=== PATIENT | male | born 1955 | race Two or more races ===

== ENCOUNTER 2017-01-27 10:10 | Emergency (ER) | payer MEDICAID ==
[~2017-01-27] VITALS: Ht 172.7 cm; Wt 81.6 kg
--- NOTE | 2017-01-27 10:10 | NUR ---
BIB FAMILY C/O R KNEE PAIN AND SWELLING X 6 DAYS, NO RECENT TRAUMA. NAD NOTED. PT AAO X4, VSS. RR EVEN AND UNLABORED. DR BRONSON AT BEDSIDE FOR EVAL.
[2017-01-27] MEDS ORDERED: ACET325T53 PO (10:21)
--- NOTE | 2017-01-27 10:46 | NUR ---
XRAY AT BEDSIDE
[2017-01-27 10:57] LABS: BASOPHILS % (AUTO) 0.5 % (0.0-2.0); EOSINOPHILS % (AUTO) 0.5 % (0.0-6.0); HEMATOCRIT 42 % (39-51); HEMOGLOBIN 13.6 g/dL (13.5-17.5); LYMPHOCYTES # (AUTO) 1.1 /CMM (0.8-4.8); LYMPHOCYTES % (AUTO) 11.7 % (20.0-44.0); MEAN CORPUSCULAR HEMOGLOBIN 27 PG (26.0-33.0); MEAN CORPUSCULAR HGB CONC 33 g/dl (31.0-36.0); MEAN CORPUSCULAR VOLUME 83 fL (80-96); MONOCYTES # (AUTO) 0.5 /CMM (0.1-1.30); MONOCYTES % (AUTO) 5.3 % (2.0-12.0); NEUTROPHILS # (AUTO) 7.8 /CMM (1.8-8.9); PLATELET COUNT (AUTO) 218 /CMM (150-450); RDW COEFFICIENT OF VARIATION 14.5 (11.5-15.0); RED BLOOD CELL COUNT(AUTO) 5.01 MIL/uL (4.5-6.0); WHITE BLOOD COUNT (AUTO) 9.4 K/uL (4.3-11.0)
[2017-01-27 11:06] LABS: CALCIUM, SERUM 8.7 mg/dL (8.5-10.1); POTASSIUM 4.2 mmol/L (3.5-5.1)
--- NOTE | 2017-01-27 11:42 | NUR ---
SYNOVIAL FLUID SENT TO LAB
--- NOTE | 2017-01-27 14:20 | NUR ---
ORO PAGED [phone] SUZIE ELECTRICIAN THIRD.
[2017-01-27 15:25] VITALS: BP 110/67
== END 2017-01-27 15:27 | disposition home or self-care (01) ==
LOC: ER 10:12
DX: M25.461 Effusion, right knee (principal)
CPT/HCPCS: 36415; 73564-TC; 80048-TC; 85025-TC; 85652-TC; 86140-TC; 87070-TC; 89051-TC; 89060-TC; A4606; J2543; J3490; Z7610

== ENCOUNTER 2017-01-28 16:15 | Inpatient (IN) | payer BC, MEDICAID ==
[~2017-01-28] VITALS: Ht 172.7 cm; Wt 81.6 kg
[~2017-01-28 16:15] MED LIST: ACET325T53 PO
[2017-01-28] MEDS ORDERED: IV NS 0.9% 1,000 ML BAG IV ONE (17:00)
[2017-01-28] MEDS ORDERED: MORPHINE SULFATE INJ 2 MG/ML DISP.SYRIN IV ONE (17:00)
[2017-01-28] MEDS ORDERED: ONDANSETRON HCL/PF 4 MG/2 ML VIAL IVP ONE (17:00)
[2017-01-28] MEDS ORDERED: VANCOMYCIN 1 GM in IV D5W 250 ML IV ONE (17:00)
[2017-01-28] MEDS ORDERED: PIPERACILLIN /TAZOBACTAM 3.375 G in IV D5W 50 ML IV ONE (17:00)
--- NOTE | 2017-01-28 17:00 | NUR ---
PT BIB FAMILY FOR R KNEE PAIN AND SWELLING X 4 DAYS. PT WAS HERE YESTERDAY FOR A PROCEDURE WITH C/O OF PAIN ALL NIGHT. SEEN BY MD FOR EVAL. VSS. SAFETY AND COMFORT MEASURES PROVIDED. WILL MONITOR.
[2017-01-28] MEDS ORDERED: MORPHINE SULFATE INJ 4 MG/ML DISP.SYRIN ONE (17:15)
[2017-01-28] MEDS ORDERED: ONDANSETRON HCL/PF 4 MG/2 ML VIAL ONE (17:15)
[2017-01-28 17:20] LABS: BASOPHILS # (AUTO) 0.1 /CMM (0.0-0.2); BASOPHILS % (AUTO) 1.1 % (0.0-2.0); EOSINOPHILS # (AUTO) 0.2 /CMM (0.0-0.7); EOSINOPHILS % (AUTO) 2.6 % (0.0-6.0); HEMATOCRIT 42 % (39-51); HEMOGLOBIN 13.9 g/dL (13.5-17.5); LYMPHOCYTES # (AUTO) 2.2 /CMM (0.8-4.8); LYMPHOCYTES % (AUTO) 26.9 % (20.0-44.0); MEAN CORPUSCULAR HEMOGLOBIN 28 PG (26.0-33.0); MEAN CORPUSCULAR HGB CONC 33 g/dl (31.0-36.0); MEAN CORPUSCULAR VOLUME 84 fL (80-96); MONOCYTES # (AUTO) 0.5 /CMM (0.1-1.30); MONOCYTES % (AUTO) 6.4 % (2.0-12.0); NEUTROPHILS # (AUTO) 5.1 /CMM (1.8-8.9); PLATELET COUNT (AUTO) 221 /CMM (150-450); RDW COEFFICIENT OF VARIATION 14.2 (11.5-15.0); RED BLOOD CELL COUNT(AUTO) 4.99 MIL/uL (4.5-6.0); WHITE BLOOD COUNT (AUTO) 8.1 K/uL (4.3-11.0)
--- NOTE | 2017-01-28 17:30 | NUR ---
IV ACCESS STARTED. BLOOD DRAWN FOR LABS. P0T MEDICATED ORDERED.
[2017-01-28 17:31] LABS: CALCIUM, SERUM 8.7 mg/dL (8.5-10.1); CARBON DIOXIDE 30 mmol/L (21-32); CHLORIDE 106 mmol/L (98-107); CREATININE 1.1 mg/dL (0.6-1.3); GLUCOSE 106 mg/dL (74-106); SODIUM SERUM 140 mmol/L (136-145); UREA NITROGEN, BLOOD 14 mg/dL (7-18)
[2017-01-28 17:34] LABS: INR 0.91 (0.87-1.13); PROTHROMBIN TIME 9.5 SECS (9.5-12.7)
[2017-01-28 17:38] LABS: ALANINE AMINOTRANSFERASE 16 U/L (12-78); ALBUMIN 3.3 g/dL (3.4-5.0); ALKALINE PHOSPHATASE 88 U/L (46-116); ASPARTATE AMINOTRANSFERASE 15 U/L (15-37); BILIRUBIN,TOTAL 0.2 mg/dL (0.2-1.0); TOTAL PROTEIN, SERUM 7.2 g/dL (6.4-8.2)
[2017-01-28 17:40] LABS: TROPONIN I < 0.017 ng/mL (0.00-0.056)
--- NOTE | 2017-01-28 20:13 | NUR ---
report given to Radha ARORA for continuation of care.
--- NOTE | 2017-01-28 20:54 | NUR ---
pt to 3w via wheelchair.
[2017-01-28 21:00] VITALS: BP 144/91
--- NOTE | 2017-01-28 21:00 | NUR ---
MS RN NOTES: CHARTING FOR ADMISSION WAS MEANT FOR 01/28/17 FOR 2099; ERROR MADE AND CHARTED FOR 01/27/172099. PLEASE NOTE. PT ARRIVED TO UNIT ON 01/28/172099.
--- NOTE | 2017-01-28 21:00 | NUR ---
MS ULYSSES OPENING NOTES: RECEIVED PT FROM ER DEPT. PT IS A/OX3. 2 FAMILY MEMBERS AT BEDSIDE. NO SOB NOTED. PT COMPLAINS OF 5/10 R KNEE PAIN BUT REFUSES TO TAKE MEDS AT THIS TIME. PT HAS IV ON R AC #20G AND IS PATENT AND INTACT. PT IS CURRENTLY H/L. PT ON ROOM AIR AND TOLERATING WELL. CALL LIGHT WITHIN PT'S REACH. BED KEPT IN LOW, LOCKED POSITION, AND SIDE RAILS X 2 UP. INSTRUCTED PT TO USE CALL LIGHT IF PT NEEDS ASSISTANCE FOR BATHROOM. WILL CONTINUE TO MONITOR PT.
[2017-01-28] MEDS ORDERED: HYDROMORPHONE INJ 2 MG/ML DISP.SYRIN IV PRN (21:30)
[2017-01-28] MEDS ORDERED: ONDANSETRON HCL/PF 4 MG/2 ML VIAL IVP PRN (21:30)
[2017-01-28] MEDS ORDERED: IBUPROFEN 400 MG TABLET PO PRN (22:00)
[2017-01-29] MEDS: PIPERACILLIN /TAZOBACTAM 3.375 G in IV D5W 50 ML IV SCH ×4 (00:09→18:01)
--- NOTE | 2017-01-29 00:23 | NUR ---
MS RN NOTES: DR. KELLEY AT BEDSIDE.
--- NOTE | 2017-01-29 06:56 | NUR ---
MS RN CLOSING NOTES: ALL NEEDS WERE ATTENDED AND ANTICIPATED FOR. PT IS RESTING IN BED COMFORTABLY. NO SOB NOTED. PT COMPLAINS OF R KNEE PAIN BUT REFUSES TO TAKE MEDS AT THIS TIME. PT HAS IV ON R AC #20G AND IS PATENT AND INTACT. PT IS CURRENTLY H/L. PT ON ROOM AIR AND TOLERATING WELL. CALL LIGHT WITHIN PT'S REACH. BED KEPT IN LOW, LOCKED POSITION, AND SIDE RAILS X 2 UP. INSTRUCTED PT TO USE CALL LIGHT IF PT NEEDS ASSISTANCE FOR BATHROOM. WILL ENDORSE TO AM NURSE FOR KEV.
[2017-01-29 07:30] LABS: BASOPHILS # (AUTO) 0.1 /CMM (0.0-0.2); BASOPHILS % (AUTO) 0.7 % (0.0-2.0); EOSINOPHILS # (AUTO) 0.2 /CMM (0.0-0.7); EOSINOPHILS % (AUTO) 2.1 % (0.0-6.0); HEMATOCRIT 40 % (39-51); HEMOGLOBIN 13.3 g/dL (13.5-17.5); LYMPHOCYTES # (AUTO) 1.9 /CMM (0.8-4.8); LYMPHOCYTES % (AUTO) 22.6 % (20.0-44.0); MEAN CORPUSCULAR HEMOGLOBIN 28 PG (26.0-33.0); MEAN CORPUSCULAR HGB CONC 33 g/dl (31.0-36.0); MEAN CORPUSCULAR VOLUME 84 fL (80-96); MONOCYTES # (AUTO) 0.6 /CMM (0.1-1.30); MONOCYTES % (AUTO) 6.9 % (2.0-12.0); NEUTROPHILS # (AUTO) 5.6 /CMM (1.8-8.9); NEUTROPHILS % (AUTO) 67.7 % (43.0-81.0); PLATELET COUNT (AUTO) 219 /CMM (150-450); RDW COEFFICIENT OF VARIATION 15.1 (11.5-15.0); RED BLOOD CELL COUNT(AUTO) 4.75 MIL/uL (4.5-6.0); WHITE BLOOD COUNT (AUTO) 8.2 K/uL (4.3-11.0)
[2017-01-29 07:49] LABS: ALBUMIN 3.1 g/dL (3.4-5.0); BILIRUBIN,TOTAL 0.4 mg/dL (0.2-1.0); CALCIUM, SERUM 8.5 mg/dL (8.5-10.1); MAGNESIUM 1.8 mg/dL (1.8-2.4); PHOSPHORUS 3.3 mg/dL (2.5-4.9); POTASSIUM 4.1 mmol/L (3.5-5.1); TOTAL PROTEIN, SERUM 6.7 g/dL (6.4-8.2)
[2017-01-29 08:00] VITALS: BP 136/89
[2017-01-29 08:00] LABS: C-REACTIVE PROTEIN 11.3 mg/dL (0.0-0.9)
--- NOTE | 2017-01-29 08:00 | NUR ---
m/s center customer service associate: initial assessment received pt in bed awake, a/ox4. no c/o pain to right knee at this time. no swelling or redness noted at this time. instructed to call for assistance. breakfast served, call light within reach. will continue to monitor.
[2017-01-29] MEDS ORDERED: FEE PK DOSING 1 MIN EA MC ONE (08:04)
[2017-01-29] MEDS: DOCUSATE SODIUM 100 MG CAPSULE PO SCH ×2 (08:50→17:45)
[2017-01-29] MEDS: PANTOPRAZOLE 40 MG TABLET.DR PO SCH (08:51)
[2017-01-29] MEDS: VANCOMYCIN 1 GM in IV D5W 250 ML IV SCH ×2 (08:58→20:00)
--- NOTE | 2017-01-29 10:00 | NUR ---
m/s bisque tile burner: md visit seen and examined by josephine (acnp) with physicians consult orders. orders acknowledged. pt made aware. at bedside.
--- NOTE | 2017-01-29 13:30 | NUR ---
m/s card game operator: orthor consult seen and examined by nidia wilson) at this time.
--- NOTE | 2017-01-29 14:30 | NUR ---
m/s executive assistant to general counsel: notes resting comfortable in bed with no c/o pain or any discomfort. instructed to call for assistance. will continue to monitor.
--- NOTE | 2017-01-29 15:20 | NUR ---
RN NOTES received pt in bed awake, a/ox4. no c/o pain to right knee at this time. no swelling or redness noted at this time. instructed to call for assistance. iv access patient and intact no redness or infiltration noted, call light within reach. will continue to monitor.
--- NOTE | 2017-01-29 15:20 | NUR ---
m/s instrumentation instructor: notes report given to marci (rn) for continuity of care.
[2017-01-29 16:00] VITALS: BP 133/79
--- NOTE | 2017-01-29 19:00 | NUR ---
PATIENT ALERT AND ORIENTED X4. VS STABLE, NO SOB. NO C/O PAIN. NO RESPIRATORY DISTRESS NOTED. HOB ELEVATED. BED IN LOW POSITION. SIDE RAILS X2. WILL ENDORSE TO THE SECONDARY SCHOOL TEACHER LIBRARIANMEDICAL AIDES TEACHER.
--- NOTE | 2017-01-29 19:30 | NUR ---
MS RN OPENING NOTES: RECEIVED PT AWAKE AND IS RESTING IN BED COMFORTABLY. PT DENIES ANY SOB. PT COMPLAINS OF 4/10 R KNEE PAIN. PT HAS IV ON RAC #20G AND IS PATENT AND INTACT. PT IS CURRENTLY H/L. PT ON ROOM AIR AND TOLERATING WELL. CALL LIGHT WITHIN PT'S REACH. BED KEPT IN LOW, LOCKED POSITION, AND SIDE RAILS X 2 UP. INSTRUCTED PT TO USE CALL LIGHT IF PT NEEDS ASSISTANCE FOR BATHROOM. WILL CONTINUE TO MONITOR PT.
[2017-01-29 20:00] VITALS: BP 130/84
[2017-01-29] MEDS: HYDROCODONE/APAP 5/325MG 1 EACH TABLET PO PRN (20:04)
--- NOTE | 2017-01-29 20:06 | NUR ---
MS RN OPENING NOTES: PT IS COMPLAINING OF 4/10 R KNEE PAIN. PT WAS ADMINISTERED NORCO 5 PO. WILL CONTINUE TO MONITOR PT.
--- NOTE | 2017-01-29 20:10 | NUR ---
MS RN NOTES: RICHY LINTON AT BEDSIDE.
[2017-01-29] MEDS ORDERED: CEFTRIAXONE 1 G in IV D5W 50 ML IV SCH (21:00)
--- NOTE | 2017-01-29 22:12 | NUR ---
MS RN NOTES: IV ON R AC #20G WAS REDDENED AND INFILTRATED. ICE APPLIED AND ARM ELEVATED. WILL CONTINUE TO MONITOR. NEW IV ON L HAND #22G STARTED AND IS PATENT AND INTACT.
--- NOTE | 2017-01-30 07:03 | NUR ---
MS RN CLOSING NOTES: ALL NEEDS WERE ATTENDED AND ANTICIPATED FOR. PT IS AWAKE AND SITTING UP IN BED. PT DENIES ANY SOB. PT COMPLAINS OF 6/10 KNEE PAIN BUT DOES NOT WANT ANY PAIN MEDS AT THIS TIME. R KNEE IS WARM TO TOUCH BUT SWELLING IS NOTED. PT HAS IV ON L HAND #22G AND IS PATENT AND INTACT. PT IS CURRENTLY H/L. PT IS ON ROOM AIR AND TOLERATING WELL. CALL LIGHT WITHIN PT'S REACH. BED KEPT IN LOW, LOCKED POSITION, AND SIDE RAILS X 2 UP. WILL ENDORSE TO AM NURSE FOR KEV.
[2017-01-30 07:52] LABS: CALCIUM, SERUM 9.3 mg/dL (8.5-10.1); POTASSIUM 4.5 mmol/L (3.5-5.1)
[2017-01-30 08:00] VITALS: BP 132/94
--- NOTE | 2017-01-30 08:28 | NUR ---
RN OPENING NOTES RECEIVED PT SITTING AT THE EDGE OF THE BED. PT IS AOX4. DENIES SOB AND CP. PT COMPLAINING OF RIGHT KNEE PAIN 6/10 BUT DOES NOT WANT ANY PAIN MEDS AT THIS TIME. WILL REASSESS PT PERIODICALLY FOR PAIN MANAGEMENT. RIGHT KNEE NOTED TO BE SWOLLEN. RESPIRATIONS APPEAR EVEN AND UNLABORED. NO ACUTE DISTRESS NOTED. PT SATURATING ADEQUATELY ON RA. PT ABLE TO AMBULATE WITH WALKER. IV ACCESS ON THE LEFT HAND 22G. PATENT AND INTACT. BED LOCKED IN THE LOWEST POSITION WITH SIDE RAILS UP X2. HOB ELEVATED. CALL LIGHT WITHIN REACH. WILL CONTINUE TO MONITOR, ASSESS AND EDUCATE PT THROUGHOUT SHIFT.
[2017-01-30] MEDS ORDERED: VANCOMYCIN 1.25 GM in IV D5W 500 ML IV SCH (09:30)
[2017-01-30] MEDS: DOCUSATE SODIUM 100 MG CAPSULE PO SCH ×2 (09:32→17:50)
[2017-01-30] MEDS: PANTOPRAZOLE 40 MG TABLET.DR PO SCH (09:32)
[2017-01-30] MEDS: ACETAMINOPHEN 325 MG TABLET PO PRN ×2 (09:32→17:49)
--- NOTE | 2017-01-30 13:12 | NUR ---
RN NOTES PATIENT RESTING COMFORTABLY IN BED. PATIENT ONLY COMPLAINING OF PAIN RIGHT KNEE PAIN BUT IS TOLERABLE. WILL CONTINUE TO MONITOR AND ASSESS.
[2017-01-30 16:00] VITALS: BP 123/76
[2017-01-30] MEDS: LACTOBACILLUS RHAMNOSUS GG 1 EACH CAP.SPRINK PO SCH (17:50)
--- NOTE | 2017-01-30 19:45 | NUR ---
RN INITIAL NOTES: RECEIVED REPORT FORM ELLEN ARORA, PT IN BED, A/O X4, ON RA RESPIRATION EVEN AND UNLABORED, PT DENIES ANY PAIN OR DISCOMFORT AT THIS TIME, PT'S FAMILY MEMBER AT BED SIDE, LEFT HAND IV ACCESS PATENT AND FLUSHING WELL, ON HL. PT AMBULATES TO THE BATHROOM WITH WALKER. SAFETY PRECAUTIONS FOR FALL INITIATED CALL LIGHT IN REACH, WILL CONTINUE TO MONITOR
--- NOTE | 2017-01-30 19:47 | NUR ---
RN CLOSING NOTES PATIENT RESTING IN BED WITH FAMILY AT THE BED SIDE. PATIENT CONDITION REMAINS UNCHANGED. PATIENT SEEN BY ID. GARCIA D/C'D. EDUCATION ON PAIN MANAGEMENT DONE. PATIENT AWARE. RESPIRATIONS EVEN AND UNLABORED. NO ACUTE DISTRESS NOTED. DENIES CP AND SOB. RIGHT KNEE PAIN 5/10. TYLENOL GIVEN X2 THROUGHOUT SHIFT. ALL NEEDS MET. ALL MEDS GIVEN. WILL ENDORSE TO NIGHT RN FOR CONTINUATION OF CARE.
[2017-01-30 20:00] VITALS: BP 115/81
--- NOTE | 2017-01-30 21:00 | NUR ---
RLE ASSESSMENT: PT'S RIGHT KNEE APPEARS TO BE SWOLLEN, PT DENIES ANY NUMBNESS TINGLING SENSATION ON THE LEG DESPITE THE SWELLING NOTED, ALSO PT ABLE TO MOVE AND WIGGLE TOES, PEDAL PULSES INTACT AND PALPABLE, ALSO PT ABLE TO AMBULATE WITH WALKER, ENCOURAGE PT TO OFFLOAD THE LEG ON PILLOWS, WILL CONTINUE MONITORING THE PT
[2017-01-30] MEDS: HYDROCODONE/APAP 5/325MG 1 EACH TABLET PO PRN (23:54)
--- NOTE | 2017-01-30 23:54 | NUR ---
PRN NORCO: PT C/O 5/10 PAIN ON HIS RIGHT KNEE, REQUESTING FOR MEDICATION, PRN NORCO 5/325 MG TAB PO ADMINISTERED TO THE PT AT THIS TIME, WILL CONTINUE TO MONITOR AND REASSESS
--- NOTE | 2017-01-31 02:00 | NUR ---
rn notes: seen pt sleeping, appears comfortable, no facial grimace noted, no sob noted will continue to monitor
--- NOTE | 2017-01-31 06:45 | NUR ---
rn closing notes: pt in bed, awake, denies any pain or discomfort at this time,respiration even and unlabored, left hand iv access remains patent and flushing well, on hl. vs remains stable, needs attended, awaiting for ortho for final recommendation. safety precautions for fall remains engaged call light in reach, will endorse to day rn for rafa.
--- NOTE | 2017-01-31 07:30 | NUR ---
RN OPENING NOTES RECEIVED PT. IN BED A&OX4. BREATHING UNLABORED ON ROOM AIR, AND NO SOB. NO S/S OF ACUTE DISTRESS. PT. DENIES PAIN. BED IS IN LOWEST POSITION, 2 SIDE RAILS UP, AND INSTRUCTED PT. TO USE CALL LIGHT FOR ASSISTANCE. PT. HAS A 2 WHEEL WALKER NEAR BEDSIDE.
[2017-01-31 08:00] VITALS: BP 142/92
[2017-01-31 08:17] LABS: CREATININE 0.9 mg/dL (0.6-1.3); POTASSIUM 4.8 mmol/L (3.5-5.1)
[2017-01-31] MEDS: DOCUSATE SODIUM 100 MG CAPSULE PO SCH (09:04)
[2017-01-31] MEDS: LACTOBACILLUS RHAMNOSUS GG 1 EACH CAP.SPRINK PO SCH (09:04)
[2017-01-31] MEDS: PANTOPRAZOLE 40 MG TABLET.DR PO SCH (09:04)
[2017-01-31] MEDS ORDERED: HYDR-548 PO (09:47)
--- NOTE | 2017-01-31 11:45 | NUR ---
RN NOTES DISCHARGE PT. IS IN MEDICALLY STABLE CONDITION, A&OX4. PT. WAS PROVIDED DISCHARGE INSTRUCTIONS, EDUCATIONS, AND VERBALIZED UNDERSTANDING. BELONGINGS LIST WAS CHECKED. ALL DISCHARGE PAPERS WERE SIGNED BY PT. AND WITNESSED BY NURSE. PT.'S ID BAND WAS REMOVED, AND AGREED TO LEAVE IN A WHEEL CHAIR.
--- NOTE | 2017-01-31 12:00 | NUR ---
RN NOTES DISCHARGE HOME PT. LEFT IN STABLE CONDITION IN WHEELCHAIR ACCOMPANIED BY . PT. LEFT WITH DISCHARGE PACKET, AND ALL BELONGINGS. PT. WAS PROVIDED DR. CONTE OFFICE NUMBER AND ADDRESS TO MAKE AN APPOINT. NEXT WEEK. ALL QUESTIONS WERE ANSWERED.
== END 2017-01-31 12:00 | disposition home or self-care (01) | DRG 351 ==
LOC: ER 16:22 → MED 20:26
PROVIDERS: ADMIT Internal Medicine; ATTEND Internal Medicine
DX: M65.9 Synovitis and tenosynovitis, unspecified (principal); N20.0 Calculus of kidney; S82.141A Displaced bicondylar fracture of right tibia, initial encounter for closed fracture; M25.461 Effusion, right knee; M12.9 Arthropathy, unspecified; M51.36 Other intervertebral disc degeneration, lumbar region; M54.30 Sciatica, unspecified side; Z87.891 Personal history of nicotine dependence; X58.XXXA Exposure to other specified factors, initial encounter; Y93.9 Activity, unspecified; Y92.009 Unspecified place in unspecified non-institutional (private) residence as the place of occurrence of the external cause; S83.206A Unspecified tear of unspecified meniscus, current injury, right knee, initial encounter; M25.512 Pain in left shoulder; M25.511 Pain in right shoulder; M11.261 Other chondrocalcinosis, right knee
CPT/HCPCS: 36415; 71010-TC; 72131-TC; 73700-TC; 80048-TC; 80053-TC; 80061-TC; 80076-TC; 80202-TC; 83605-TC; 83735-TC; 84100-TC; 84484-TC; 84550-TC; 85025-TC; 85730-TC; 86140-TC; 87040-TC; 87081-TC; A4606; J0696; J2270; J2405; J2543; J3370; J7050; J7060; Z7610